=== PATIENT | male | born 1980 | race Caucasian/White ===

== ENCOUNTER → 2019-02-07 | Outpatient (CLI) | payer OTHER ==
[~2019-02-07] MED LIST: AZITHROMYCIN 2250 MG PO; VICODIN 5-5001 EACH PO; ZESTRIL10 MG
== END ==
LOC: M.RAD 17:00
DX: R05 Cough (principal); M48.061 Spinal stenosis, lumbar region without neurogenic claudication; M48.04 Spinal stenosis, thoracic region